=== PATIENT | male | born 1995 | race Caucasian/White ===

== ENCOUNTER 2017-09-19 17:10 | Emergency (ER) | payer OTHER ==
[2017-09-19] MEDS ORDERED: TETRACAINE HCL 0.5% 4 ML OPHTH SOLN ONE (17:38)
[2017-09-19] MEDS ORDERED: NA BORATE/BORIC AC/H2O/NACL 120 ML OPHTH IRRIG SOLN ONE (17:39)
[2017-09-19] MEDS ORDERED: FLUORESCEIN SODIUM 0.6 MG STRIP ONE (17:39)
== END 2017-09-19 18:09 | disposition home or self-care (01) ==
LOC: EDH 17:10
DX: S05.02XA Injury of conjunctiva and corneal abrasion without foreign body, left eye, initial encounter (principal); S05.01XA Injury of conjunctiva and corneal abrasion without foreign body, right eye, initial encounter; B35.4 Tinea corporis; M41.9 Scoliosis, unspecified; X58.XXXA Exposure to other specified factors, initial encounter; Y93.89 Activity, other specified; Y92.89 Other specified places as the place of occurrence of the external cause; Y99.8 Other external cause status

== ENCOUNTER → 2017-12-27 | Outpatient (CLI) | payer OTHER | END | disposition home or self-care (01) | LOC: RAH 09:35 | PROVIDERS: ATTEND Internal Medicine Cardiovascular Disease | DX: R06.02 Shortness of breath (principal); R55 Syncope and collapse | CPT/HCPCS: 93306 ==

== ENCOUNTER 2022-04-30 08:47 | Emergency (ER) | payer OTHER ==
[~2022-04-30] VITALS: Ht 200.7 cm; Wt 79.4 kg
[2022-04-30] MEDS ORDERED: IBUP-2071 PO (09:02)
[2022-04-30 09:15] VITALS: BP 126/84
== END 2022-04-30 09:16 | disposition home or self-care (01) ==
LOC: EDH 08:47
DX: S93.402A Sprain of unspecified ligament of left ankle, initial encounter (principal); W50.0XXA Accidental hit or strike by another person, initial encounter; Y93.89 Activity, other specified; Y92.89 Other specified places as the place of occurrence of the external cause; Y99.8 Other external cause status

== ENCOUNTER 2023-05-06 00:34 | Emergency (ER) | payer OTHER ==
[~2023-05-06] VITALS: Ht 198.1 cm; Wt 87.5 kg
[~2023-05-06 00:34] MED LIST: ACET-2247 PO; IBUP-1493 PO; IBUP-2071 PO; NIRM1TAB PO
[2023-05-06 00:35] VITALS: BP 148/80; PULSE 63; RESP 18
[2023-05-06] MEDS ORDERED: IBUP-1493 PO (00:45)
[2023-05-06] MEDS ORDERED: DIPH50 PO (00:45)
[2023-05-06] MEDS ORDERED: FAMO-136 PO (00:45)
[2023-05-06] MEDS ORDERED: IBUPROFEN 800 MG TAB PO ONE (01:00)
[2023-05-06] MEDS ORDERED: FAMOTIDINE 20MG TAB PO ONE (01:00)
[2023-05-06] MEDS ORDERED: DIPHENHYDRAMINE HCL 25 MG CAPSULE PO ONE (01:00)
== END 2023-05-06 00:55 | disposition home or self-care (01) ==
LOC: EDH 00:34
DX: S50.861A Insect bite (nonvenomous) of right forearm, initial encounter (principal); Z79.899 Other long term (current) drug therapy; X58.XXXA Exposure to other specified factors, initial encounter; Y93.89 Activity, other specified; Y92.89 Other specified places as the place of occurrence of the external cause; Y99.8 Other external cause status
CPT/HCPCS: 99284; Q0163